=== PATIENT | female | born 1980 | race African-American/Black ===

== ENCOUNTER → 2020-02-29 | Outpatient (CLI) | payer OTHER | LOC: ULTRA 14:58 | PROVIDERS: ATTEND Obstetrics & Gynecology | DX: R10.2 Pelvic and perineal pain (principal) ==

== ENCOUNTER 2020-12-08 07:57 | Inpatient (IN) | payer OTHER ==
[~2020-12-08] VITALS: Ht 160 cm; Wt 68.0 kg
[2020-12-08] VITALS (7 sets, daily range): BP systolic 92–117; BP diastolic 62–78
[2020-12-08] MEDS ORDERED: VALSARTAN-HCTZ1 EAC2 PO (08:05)
[2020-12-08 08:39] LABS: ABSOLUTE NEUTROPHILS 12.3 thou/uL (1.4-8.2); BASOPHILS 0.5 % (0.0-2.0); EOSINOPHILS 0.2 % (0.0-3.0); HEMATOCRIT 39.1 % (37.0-47.0); HEMOGLOBIN 13.2 gm/dL (12.0-15.0); LYMPHOCYTES 11.6 % (24.0-44.0); MCH 32.2 pg (26.0-34.0); MCHC 33.8 g/dL (28.0-37.0); MCV 95.4 fL (80.0-100.0); MONOCYTES 6.1 % (1.0-8.0); PLATELET COUNT 231 thou/uL (150-400); POLYS 81.6 % (36.0-66.0); RDW 13.3 % (10.5-14.5)
[2020-12-08 08:46] LABS: ANION GAP 11 mmol/L (7-16); BUN 16 mg/dL (7-18); CALCIUM 9.3 mg/dL (8.5-10.1); CHLORIDE 98 mmol/L (98-107); CO2 27 mmol/L (21-32); CREATININE 1.1 mg/dL (0.6-1.0); GLUCOSE 138 mg/dL (74-106); POTASSIUM 3.9 mmol/L (3.5-5.1); SODIUM 136 mmol/L (136-145)
[2020-12-08 08:52] LABS: ALBUMIN 3.9 g/dL (3.4-5.0); DIRECT BILIRUBIN < 0.1 mg/dL (<0.1-0.2); LIPASE 80 U/L (73-393); SGOT 472 U/L (15-37); SGPT 80 U/L (30-65); TOTAL BILIRUBIN 0.5 mg/dL (0.2-1.0); TOTAL PROTEIN 8.2 g/dL (6.4-8.2)
--- NOTE | 2020-12-08 15:00 | 2DMMODE ---
[facility] [place] [address] 2 D/M-MODE ECHOCARDIOGRAM Name: DOUG GRAFF [facility] Room #: 170-9 ADM IN M.R.#: [id number] Admission: 12/08/20 Attend Phys: Og Khan MD Discharge: Date of : 80 Report #: [id number] THIS REPORT FOR: cc: Doug Ortiz DNP, Mary E. DNP Park, Jin S. MD ~ APPROVED REPORT Study performed: 12/08/2020 12:43:22 EXAM: Comprehensive 2D, Doppler, and color-flow Echocardiogram Patient Location: ER Room #: 9 Status: stat BSA: 1.71 HR: 76 bpm BP: 134/98 mmHg Rhythm: NSR Other Information Study Quality: Good Indications Non STEMI 2D Dimensions RVDd: 31.86 mm IVSd: 14.44 (7-11mm) LVOT Diam: 19.61 (18-24mm) LVDd: 35.20 mm PWd: 12.81 (7-11mm) Ascending Ao: 29.46 (22-36mm) LVDs: 23.98 (25-40mm) Left Atrium: 27.79 (27-40mm) Aortic Root: 26.68 mm IVC: 19.00 mm Volumes Left Atrial Volume (Systole) Single Plane 4CH: 28.42 mL Single Plane 2CH: 27.51 mL LA ESV Index: 18.00 mL/m2 Aortic Valve AoV Peak Matt.: 1.30 m/s AO Peak Gr.: 6.80 mmHg LVOT Max P.60 mmHg LVOT Max V: 1.07 m/s CORNELL Vmax: 2.48 cm2 [facility] [address] [address] 2 D/M-MODE ECHOCARDIOGRAM [facility] #: 170-[address] [facility].#: [id number] Admission: 12/08/20 Attend Phys: Og Khan MD Discharge: Date of : 80 Report #: [id number] Mitral Valve E/A Ratio: 1.2 MV Decel. Time: 218.69 ms MV E Max Matt.: 0.76 m/s MV A Matt.: 0.63 m/s MV PHT: 63.42 ms IVRT: 110.73 ms Pulmonary Valve PV Peak Matt.: 0.93 m/s PV Peak Gr.: 3.45 mmHg Pulmonary Vein P Vein S: 0.53 m/s P Vein A: 0.23 m/s P Vein D: 0.29 m/s P Vein A Dur.: 110.7 msec P Vein S/D Ratio: 1.83 Tricuspid Valve TR Peak Matt.: 2.45 m/s TR Peak Gr.: 23.98 mmHg PA Pressure: 29.00 mmHg Left Ventricle The left ventricle is normal size. There is hypokinesis of the inferior segment. Mild concentric left ventricular hypertrophy. Left ventricular systolic function is mild to moderately decreased. LVEF is 40-45%. The left ventricular diastolic function is normal. Right Ventricle The right ventricle is normal size. The right ventricular systolic function is normal. Atria The left atrium size is normal. The right atrium size is normal. Aortic Valve The aortic valve is normal in structure. No aortic regurgitation is present. There is no aortic valvular stenosis. Mitral Valve The mitral valve is normal in structure. Trace mitral regurgitation. No evidence of mitral valve stenosis. Tricuspid Valve The tricuspid valve is normal in structure. There is trace tricuspid [facility] [address] [address] 2 D/M-MODE ECHOCARDIOGRAM Name: DOUG GRAFF [facility] Room #: 170-9 ADM IN M.R.#: [id number] Admission: 12/08/20 Attend Phys: Og Khan MD Discharge: Date of : 80 Report #: [id number] regurgitation. Estimated PAP 29 mmHg. Pulmonic Valve The pulmonary valve is normal in structure. There is no pulmonic valvular regurgitation. Great Vessels The aortic root is normal in size. IVC is normal in size and collapses >50% with inspiration. Pericardium There is no pericardial effusion. <Conclusion> The left ventricle is normal size. Mild concentric left ventricular hypertrophy. Left ventricular systolic function is mild to moderately decreased. The right ventricle is normal size. The left atrium size is normal. The aortic valve is normal in structure. Trace mitral regurgitation. There is trace tricuspid regurgitation. Estimated PAP 29 mmHg. <ELECTRONICALLY SIGNED> By: Cornell Gaspar MD 12/08/20 1500 1500 1500 Cornell Gaspar MD /INF
[2020-12-08 15:35] LABS: CHOLESTEROL 236 mg/dL (<200); HDL CHOLESTEROL 48 mg/dL (>40); LDL CHOLESTEROL 151 mg/dL (<100); TC:HDL 4.9 Ratio (Not establshd); TRIGLYCERIDE 187 mg/dL (<150); VLDL 37 mg/dL (<40)
--- NOTE | 2020-12-08 15:47 | EKG ---
[address] [place] [address] ELECTROCARDIOGRAM REPORT Name: DOUG GRAFF [facility] Room #: 170-9 ADM IN M.R.#: [id number] Admission: 12/08/20 Attend Phys: Og Khan MD Discharge: Date of : 80 Report #: [id number] [facility] ED Test Date: 2020-12-08 Test Time: 09:30:07 Pat Name: DOUG GRAFF Department: Room: 170 Gender: F Core Shaper Top: tiffany : 1980 Requested By: Carroll Alvarez Order Number: [id number] MD: Michael Uribe Measurements Intervals [place] Rate: 70 P: 67 MS: 146 QRS: 47 QRSD: 127 T: -73 QT: 425 QTc: 459 Interpretive Statements Sinus rhythm Probable left atrial enlargement Nonspecific intraventricular conduction delay Nonspecific repol abnormality, diffuse leads IWMI, acute No previous ECG available for comparison Electronically Signed On 12-08-2020 15:47:13 CDT by Michael Uribe [email or web address] <ELECTRONICALLY SIGNED> By: Michael Uribe MD, [facility] 12/08/20 1547 0930 9 Michael Uribe MD, FACC /EPI
--- NOTE | 2020-12-08 15:48 | EKG ---
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: GALILEO : 1980 Requested By: Cornell Gaspar Order Number: [id number] MD: Michael Uribe Measurements Intervals [place] Rate: 68 P: 60 CO: 148 QRS: 40 QRSD: 102 T: -66 QT: 396 QTc: 422 Interpretive Statements Sinus rhythm Nonspecific T abnormalities, diffuse leads Compared to ECG 12/08/2020 10:37:20 T-wave abnormality now present Intraventricular conduction delay no longer present Electronically Signed On 12-08-2020 15:48:30 CDT by Michael Uribe [email or web address] <ELECTRONICALLY SIGNED> By: Michael Uribe MD, [facility] 12/08/20 1548 15 15 Michael Uribe MD, FACC /EPI
--- NOTE | 2020-12-08 15:48 | EKG ---
[address] [place] [address] ELECTROCARDIOGRAM REPORT Name: [facility]G GRAFF [facility] Room #: 170-9 ADM IN M.R.#: [id number] Admission: 12/08/20 Attend Phys: Og Khan MD Discharge: Date of : 80 Report #: [id number] [facility] ED Test Date: 2020-12-08 Test Time: 10:37:20 Pat Name: DOUG GRAFF Department: Room: 170 Gender: F Autoclave Operator: NOMI : 1980 Requested By: Carroll Alvarez Order Number: [id number] MD: Michael Uribe Measurements Intervals [place] Rate: 63 P: 66 [place]: 143 QRS: 52 QRSD: 140 T: -57 QT: 439 QTc: 450 Interpretive Statements Sinus rhythm Probable left atrial enlargement Nonspecific intraventricular conduction delay Borderline repol abnrm, anterolateral leads Compared to ECG 12/08/2020 09:30:07 ST (T wave) deviation no longer present Electronically Signed On 12-08-2020 15:48:04 CDT by Michael Uribe [email or web address] <ELECTRONICALLY SIGNED> By: Michael Uribe MD, [facility] 12/08/20 1548 1037 1037 Michael Uribe MD, [facility] /EPI
--- NOTE | 2020-12-08 16:49 | CATHLAB ---
[facility] [place] [address] INVASIVE PROCEDURE REPORT Name: [facility] Room #: 170-9 ADM IN M.R.#: [id number] Admission: 12/08/20 Attend Phys: Og Khan MD Discharge: Date of : 80 Report #: [id number] THIS REPORT FOR: cc: Doug Ortiz DNP, Mary E. DNP Park, Jin S. MD ~ APPROVED REPORT Study performed: 12/08/2020 12:24:20 Patient Details Patient Status: ED Room #: The patient is a 40 year-old female Event Personnel Cornell Gaspar Cardiopulmonary Supervisor, Estela Jackson RN RN, Michelle Mcclain Monitor, Kate Murcia RTR, LAW ENFORCEMENT DIRECTOR Scrub Procedures Performed Art Access - R femoral artery* Left Heart Cath w/or w/o Coronaries [id number] [facility] [address] Initial Mod Sed Same Phys/QHP Gr5y 307118 64224 Mod Sed Same Phys/QHP Ea 571278 Hemostasis w/ Mynx VIOLA Place w/wo Plasty Single RCA 010746 Indication Non-STEMI , Unstable angina , The patient presented with 2 days of abdominal discomfort and nausea. ECG revealed ST segment abnormalities in inferior leads. Initial troponin level was positive, diagnosed with postinfarct angina. Risk Factors Cerebrovascular Disease, Hypercholesterolemia, Hypertension, Tobacco History () Previous Procedures/Diagnoses Previous CVA Procedure Narrative The Right Groin^ was infiltrated with 1% Lidocaine subcutaneous anesthesia. A PINNACLE 6FR Sheath #[id number] sheath was inserted into the RFA 6F^. Coronary angiography was performed using coronary diagnostic catheters. The right coronary system was accessed and visualized with a JR4 catheter. The left coronary system was accessed and visualized with a JL4 catheter. The left ventricle was accessed [facility] [place] [address] [place] [address] INVASIVE PROCEDURE REPORT Name: DOUG GRAFF [facility] Room #: 170-9 ADM IN ..#: [id number] Admission: 12/08/20 Attend Phys: Og Khan MD Discharge: Date of : 80 Report #: [id number] and visualized with a ANGLE PIG catheter. Left ventriculogram was performed in 30 degree projection. There was no hematoma. Intraoperative Conscious Sedation Sedation start time: 1335 Case end Time: 1455 Fentanyl 37 mcg Versed 0.5 mg Fluoro Time: 23.50 minutes Dose: DAP 74946.10 cGycm2 3900 mGy Contrast Type and Amount: Omnipaque 265 ml Coronary Angiography The patient's coronary anatomy is right dominant. Diagnostic Cath Left Main The left main artery is a large-caliber vessel, patent with no flow-limiting lesions. LAD The LAD is a moderate-sized caliber vessel, traverses the anterior wall and wraps around the apex. There is mild disease in the proximal segment, 30%. Diagonal 1 This is a small to moderate-sized caliber vessel, patent with no flow-limiting lesions. Circumflex There is mild disease in the proximal left circumflex artery, 30%. OM1 This is a small to moderate-sized caliber vessel, patent with no flow-limiting lesions. OM2 There is a moderate-sized caliber vessel, patent with no flow-limiting lesions. Right Coronary There is a total occlusion in the proximal/mid segment with a filling defect. R PDA There are partial collaterals to the distal PDA from the left coronary artery. Left Ventriculography The left ventricle is normal in size with Diminished contractility. The left ventricular ejection fraction is estimated to be 40-45%. Left ventricular wall motion abnormalities are present. There is inferior wall hypokinesis. Hemodynamics The aortic pressure is mmHg with a mean of 57 mmHg. The left ventricular pressure is 104/9 mmHg with a mean of mmHg. The left ventricular end diastolic pressure is 27 mmHg. [facility] [address] [place] [address] INVASIVE PROCEDURE REPORT Name: DOUG GRAFF [facility] Room #: 1709 [facility] IN [facility].#: [id number] Admission: 12/08/20 Attend Phys: Og Khan MD Discharge: Date of : 80 Report #: [id number] PCI Technique Lesion Percutaneous coronary intervention was performed on the Proximal/mid right coronary artery. The lesion stenosis prior to intervention was 100% with KIM 0 flow. A VISTA 6FR JR 4 #[id number] Guide Catheter was used to engage the ostium. A Luge Wire .014 x 182CM #[id number] Interventional Guidewire was used to cross the lesion. BALLOON DILATION A Balloon catheter Euphora RX 2.25 x 15 #[id number] was inserted and inflated up to 8.00atm for 12seconds. Additional Inflation: 8.00atm for 14seconds. Additional Inflation: 8.00atm for 14seconds. QUICK CAT THROMBECTOMY DEVICE USED X 6 TIMES DOWN THE RCA. AFTER THROMBECTOMY RECEPTIONIST/TELEPHONE OPERATOR WAS PERFORMED WITH THE EUPHORA BALLOON 2.71L36HN FROM THE PRCA TO DRCA: DRCA 4 MICHAELLE FOR 16 SEC, 6 MICHAELLE FOR 24 SEC. MRCA 14 MICHAELLE FOR 15 SEC AND 14 MICHAELLE FOR 17 SEC. STENT DEPLOYMENT A drug-eluting stent RESOLUTE AMAIRS RX 3.0 X 15 #[id number] was inserted and inflated up to 12.00atm for 17seconds. COMMENTS I placed a luge wire through the obstruction and placed in the distal branches. The lesion was initially ballooned with no improvement in flow. There was evidence for thrombus within the mid and distal segments of the RCA proper. As above, thrombectomy was performed multiple times. This removed a significant amount of obstruction with an improvement in coronary blood flow. The distal RCA and the branches were ballooned with a 2.25 mm semicompliant balloon. There was a significant lesion in the mid RCA and this was stented with a drug-eluting stent. Conclusion 1. PCI involving thrombectomy and placement of a drug-eluting stent into the RCA with cheondoism of KIM-3 blood flow. 2. There is mild disease in the LAD and left circumflex artery. 3. There is mild to moderate segmental LV dysfunction. 4. Recommend dual antiplatelet therapy and aggressive risk factor management. <ELECTRONICALLY SIGNED> By: Cornell Gaspar MD 12/08/201647 47 47 Cornell Gaspar MD /INF
--- NOTE | 2020-12-08 17:07 | NUR ---
PT ORIENTED TO ROOM AND UNIT, BED LOW AND LOCKED, SIDE RAILS UPX 3, CALL LIGHT IN REACH, TELE APPLIED. RIGHT GROIN CDI WITH NO HEAMTOMA. WILL CONTINUE TO ASSESS.
--- NOTE | 2020-12-08 18:29 | NUR ---
PT OFF BED REST AND UP TO BATRHROM. RIGHT GROIN CDI WOTH NO HEMATOMA.
[2020-12-09 00:45] VITALS: BP 124/104
--- NOTE | 2020-12-09 03:50 | NUR ---
RECEIVED CARE OF THIS PATIENT AT 1900. PATIENT ALERT AND ORIENTED X4. UP AD CHRIS. IV PATENT IN R HAND. HAS DRESSING IN R GROIN, INTACT WITH S/S OF HENATOMA OR OTHER PROBLEMS. C/O PAIN, MED GIVEN. DENIES N/V. SLEPT OFF AND ON DURING NIGHT.
[2020-12-09 04:45] VITALS: BP 98/64
[2020-12-09 06:20] LABS: MCHC 33.1 g/dL (28.0-37.0); MCV 96.7 fL (80.0-100.0); RBC 3.42 mil/uL (4.20-5.00); RDW 13.5 % (10.5-14.5); WBC 9.6 thou/uL (4.0-11.0)
[2020-12-09 06:24] LABS: HEMOGLOBIN 10.9 gm/dL (12.0-15.0)
[2020-12-09 06:38] LABS: ALBUMIN 2.6 g/dL (3.4-5.0); POTASSIUM 3.5 mmol/L (3.5-5.1); TOTAL BILIRUBIN 0.4 mg/dL (0.2-1.0); TOTAL PROTEIN 5.9 g/dL (6.4-8.2)
--- NOTE | 2020-12-09 07:38 | EKG ---
[place] [address] 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 : 1980 Requested By: Cornell Gaspar Order Number: [id number] MD: Michael Uribe Measurements Intervals [place] Rate: 68 P: 0 [place]: QRS: 34 QRSD: 94 T: -71 QT: 454 QTc: 483 Interpretive Statements Sinus rhythm Second deg AVB, Mobitz I (Keerthikeaiden) IWMI, suspect recent Repol abnrm, global ischemia, diffuse leads Compared to ECG 12/08/2020 15:16:22 Early repolarization now present Possible ischemia now present T-wave abnormality no longer present Electronically Signed On 12-09-2020 7:37:56 CDT by Michael Uribe [email or web address] <ELECTRONICALLY SIGNED> By: Michael Uribe MD, FACC 12/09/20 0737 7 7 Michael Uribe MD, [facility] /EPI
[2020-12-09 09:19] VITALS: BP 86/52
[2020-12-09 13:09] VITALS: BP 93/58
[2020-12-09 20:07] VITALS: BP 111/74
--- NOTE | 2020-12-09 20:09 | NUR ---
ASSESSMENT CHARTED - MEDS PER ANGELIKA - DELMER DIET AND FLUIDS. PT WITH NO CO'S OF NAUSEA. GIVEN PAIN MS 2MGS X 3 DOSES FOR ABDO PAIN WITH MIN/MOD RELIEF. SPOKE WITH PHYS AND REQUESTED DIFFERENT MEDICATION - PADED A FURTHER 2 TIMES TO REQUEST AND PAGES NOT RETURNED. NOT NURSE NOTIFIED OF THIS. PT UP AD CHRIS IN ROOM. SEEN BY GI DOCTOR THIS SHIFT - PROTONIX AND CARAFATE ORDERED AND GIVEN. GROIN SITE REMAIN C/D/I. PT WITH SPASMS CONTINUING AT THE PRESENT TIME.
[2020-12-10 05:37] VITALS: BP 109/62
[2020-12-10 06:12] LABS: HEMATOCRIT 30.5 % (37.0-47.0); HEMOGLOBIN 10.3 gm/dL (12.0-15.0); MCH 32.7 pg (26.0-34.0); MCHC 33.9 g/dL (28.0-37.0); MCV 96.6 fL (80.0-100.0); RBC 3.16 mil/uL (4.20-5.00); RDW 13.6 % (10.5-14.5); WBC 8.2 thou/uL (4.0-11.0)
--- NOTE | 2020-12-10 06:36 | NUR ---
ASSUMED CARE OF PT AT 1900. PT IS 1OX4 40F POST STEMI. PT IS ABLE TO AMBULATE IN ROOM AD CHRIS, RUNS SINUS RYTHM WITH SOME ARRYTHMIA, CLEAR ON ROOM AIR, AND R GROIN SITE CLEAN/DRY/INTACT. PT EXPERIENCED SOME DIAPHRAGM SPASMS OVER THE LAST DAY, CALLED [facility] AND GOT CYCLOBENZAPRINE 5MG AND ORDERED REGLAN LATER. BOTH OF THESE EFFECTIVELY MANAGED HER SPASMS. PT RESTED THROUGHOUT THE NIGHT WITH NO COMPLAINTS, VSS. PAIN CONTROLLED WITH IV MEDS X1. WILL CONT TO MONTITOR.
[2020-12-10 06:38] LABS: ALBUMIN 2.5 g/dL (3.4-5.0); DIRECT BILIRUBIN < 0.1 mg/dL (<0.1-0.2); SGOT 133 U/L (15-37); SGPT 46 U/L (30-65); TOTAL BILIRUBIN 0.4 mg/dL (0.2-1.0)
--- NOTE | 2020-12-10 08:17 | HC ---
[facility] [place] [address] CONSULTATION [facility]: [facility] #: 218-P ADM IN M.R.#: [id number] Admission: 12/08/20 Attend Phys: Og Khan MD Discharge: Date of : 80 Report #: [id number] THIS REPORT FOR: cc: Doug Ortiz DNP, Mary E. DNP Mc[place]hinney, Christian C. MD ~ cc: Cornell Gaspar MD, Og Khan MD DATE OF SERVICE: 12/09/2020 HISTORY OF PRESENT ILLNESS: The patient is a 40-year-old female who began having nausea and vomiting over the weekend as well as abdominal pain. On admission, labs showed a troponin of greater than 25,000. EKG at that time revealed S, R and ST elevations in the inferior leads. She underwent cardiac catheterization by Dr. Cornell Gaspar yesterday in which a thrombectomy was performed and a placement of a drug-eluting stent in the RCA was done. Reason for GI consultation is elevated liver function test, recent nausea and vomiting as well as the patient complaining of hiccups and substernal pain and pressure at this time, possibly due to reflux. The patient has a history of CVA at age 19. In speaking with the patient and her mother, just in the last few days she has been having spasms, hiccup-like picture, which is new. Each time, the patient tries to speak, it appears her diaphragm is spasming and she is having difficulty with speech because of this. She does report some heartburn-type symptoms. No previous history of endoscopy. She was not taking any antacids at home. She denies any dysphagia. No previous history of liver disease. She denies any significant alcohol use. No shortness of breath. No fevers or chills at this time. PAST MEDICAL HISTORY: Previous history of CVA at age 19, hypertension, OR status post cardiac catheterization as described above. SOCIAL HISTORY: She does smoke cigars. She reports occasional alcohol use. PHYSICAL EXAMINATION: VITAL SIGNS: Temperature is 37.0, pulse 55, blood pressure is 93/58, respiratory rate is 20. GENERAL: She is alert and oriented x 3. HEENT: Sclerae nonicteric. Oropharynx clear. NECK: Supple, without lymphadenopathy. CARDIAC: Regular rate. CHEST: Clear to auscultation bilaterally. ABDOMEN: Soft. She is mildly tender to palpation in the midepigastrium. Nondistended, positive bowel sounds. EXTREMITIES: No cyanosis, clubbing or edema. NEUROLOGIC: The patient is having spasm-type procedure of her diaphragm when [address] [address] CONSULTATION Name: DOUG GRAFF [facility] Room #: 218-P ADM IN M.R.#: [id number] Admission: 12/08/20 Attend Phys: Og Khan MD Discharge: Date of : 80 Report #: [id number] she is speaking, which is worse, although she is having hiccup-type spasms even when she is not speaking. Again, she states this is a new problem. IMAGING: CT scan of the abdomen and pelvis showing mild fluid surrounding the gallbladder. No evidence of gallstones or gallbladder wall thickening. Finding is indeterminate. Diverticulosis noted throughout the colon. No signs of diverticulitis. Small bilateral renal stones. Three enhancing lesions within the liver measuring up to 1.4 cm are indeterminate, possible focal areas of transient hepatic arterial differentiation or small hepatic hemangiomas. Recommend follow up with ultrasound for further evaluation. An ultrasound of the abdomen was then performed showing trace pericholecystic fluid is again noted indeterminate, ill-defined 1.2 cm hypoechoic lesion in the right hepatic lobe, likely corresponds with a larger enhancing lesion on CT earlier today. The smaller lesions seen on CT are not visualized. These lesions therefore remain indeterminate. Recommend MRI of the abdomen, liver to fully evaluate this is not emergent, can be performed electively as an outpatient. LABORATORY DATA: WBC 9.6, hemoglobin 10.9, platelet count is 168. Sodium 140, potassium 3.5, chloride 107, bicarbonate 22, BUN is 8, creatinine is 1.0, glucose 125, calcium is 8.0, total bilirubin 0.5, AST is 272 and this is down from 472, ALT is 57 and down from 80, alkaline phosphatase is 54 and down from 72, total protein 5.9, albumin 2.6, triglycerides 187. Cholesterol 236. Lipase 80. test was negative. COVID was negative. ASSESSMENT AND PLAN: 1. Elevated liver function tests, specifically AST, ALT. They are improving at this time. There is mild pericholecystic fluid. No evidence of gallstones or gallbladder wall thickening. The patient denies any abdominal pain in the right upper quadrant. The patient may have had some ischemic changes due to recent OR. We will continue to monitor liver function tests. She also has indeterminate lesions in the dome of the liver, would proceed with an MRI later as an outpatient for further evaluation. 2. Hiccups and spasms while talking. This is a new finding. Etiology is unclear, although reflux with esophagitis could potentially cause these type of symptoms. The patient is too high risk at this time with recent OR to proceed with an upper endoscopy. Therefore, we will start treating with b.i.d. PPI therapy and liquid Carafate initially to see if this is helpful. We will continue to follow. Thank you for allowing me to participate in her care. <ELECTRONICALLY SIGNED> By: Bill Veiyra MD 12/10/20 0817 1446 1632 Bill Vieyra MD /nt
[2020-12-10] MEDS ORDERED: BAYER CHEWABLE81 MG PO (09:15)
[2020-12-10] MEDS ORDERED: BRILINTA90 MG PO (09:15)
[2020-12-10] MEDS ORDERED: LIPITOR40 MG PO (09:15)
[2020-12-10 09:31] VITALS: BP 87/55
[2020-12-10 12:49] VITALS: BP 103/67
[2020-12-10] MEDS ORDERED: CARAFATE 11 GM/10 M1 PO (12:50)
[2020-12-10] MEDS ORDERED: ZOFRAN ODT4 MG SUBLING (12:50)
[2020-12-10] MEDS ORDERED: PROTONIX 20 MG20 M1 PO (12:50)
[2020-12-10] MEDS ORDERED: REGLAN 10 MG TA10 MG PO (12:50)
[2020-12-10 15:38] VITALS: BP 103/67
== END 2020-12-10 16:42 | disposition home or self-care (01) | DRG 247 ==
LOC: ER 07:57 → EROBS 13:11 → 2N 13:11
PROVIDERS: Internal Medicine Cardiovascular Disease; Nurse Practitioner; Specialist; Student in an Organized Health Care Education/Training Program; ADMIT Internal Medicine; ATTEND Internal Medicine
PROC: 027034Z Dilation of Coronary Artery, One Artery with Drug-eluting Intraluminal Device, Percutaneous Approach (ICD-10-PCS; principal; 2020-12-08)
PROC: 4A023N7 Measurement of Cardiac Sampling and Pressure, Left Heart, Percutaneous Approach (ICD-10-PCS; principal; 2020-12-08)
PROC: B2151ZZ Fluoroscopy of Left Heart using Low Osmolar Contrast (ICD-10-PCS; principal; 2020-12-08)
PROC: B2111ZZ Fluoroscopy of Multiple Coronary Arteries using Low Osmolar Contrast (ICD-10-PCS; principal; 2020-12-08)
DX: I21.3 ST elevation (STEMI) myocardial infarction of unspecified site (principal); I10 Essential (primary) hypertension; E78.5 Hyperlipidemia, unspecified; I73.9 Peripheral vascular disease, unspecified; R06.6 Hiccough; D64.9 Anemia, unspecified; I25.5 Ischemic cardiomyopathy; K21.9 Gastro-esophageal reflux disease without esophagitis; Z79.82 Long term (current) use of aspirin; Z79.899 Other long term (current) drug therapy; Z88.8 Allergy status to other drugs, medicaments and biological substances; Z86.73 Personal history of transient ischemic attack (TIA), and cerebral infarction without residual deficits
CPT/HCPCS: 10081

== ENCOUNTER → 2020-12-25 | Outpatient (CLI) | payer OTHER ==
[~2020-12-25] MED LIST: BAYER CHEWABLE81 MG PO; BRILINTA90 MG PO; CARAFATE 11 GM/10 M1 PO; LIPITOR40 MG PO; PROTONIX 20 MG20 M1 PO; REGLAN 10 MG TA10 MG PO; VALSARTAN-HCTZ1 EAC2 PO; ZOFRAN ODT4 MG SUBLING
== END ==
LOC: MRI 14:27
PROVIDERS: ATTEND Nurse Practitioner
DX: I67.1 Cerebral aneurysm, nonruptured (principal)

== ENCOUNTER → 2021-01-14 | Outpatient (CLI) | payer OTHER | LOC: CAT 11:01 | PROVIDERS: ATTEND Nurse Practitioner | DX: I67.1 Cerebral aneurysm, nonruptured (principal); R90.89 Other abnormal findings on diagnostic imaging of central nervous system ==

== ENCOUNTER 2021-01-24 22:40 | Emergency (ER) | payer OTHER ==
[~2021-01-24] VITALS: Ht 160 cm; Wt 76.2 kg
[2021-01-25 00:02] LABS: CALCIUM 9.7 mg/dL (8.5-10.1); CREATININE 1.1 mg/dL (0.6-1.0)
[2021-01-25 00:06] LABS: POTASSIUM 3.8 mmol/L (3.5-5.1)
[2021-01-25] MEDS ORDERED: TOPROL XL25 MG PO (00:20)
[2021-01-25 00:24] VITALS: BP 114/81
[2021-01-25 01:48] LABS: ABSOLUTE NEUTROPHILS 7.9 thou/uL (1.4-8.2); BASOPHILS 1.1 % (0.0-2.0); HEMATOCRIT 42.8 % (37.0-47.0); MCH 31.6 pg (26.0-34.0); MCHC 32.8 g/dL (28.0-37.0); MCV 96.2 fL (80.0-100.0); MONOCYTES 6.5 % (1.0-8.0); POLYS 62.4 % (36.0-66.0); RBC 4.44 mil/uL (4.20-5.00); RDW 13.5 % (10.5-14.5)
[2021-01-25 01:49] LABS: PLATELET COUNT 269 thou/uL (150-400)
--- NOTE | 2021-01-25 12:29 | EKG ---
[place] [address] [place] [address] ELECTROCARDIOGRAM REPORT [facility] [id number] Admission: 01/24/21 Attend Phys: Discharge: 01/25/21 Date of : 80 Report #: [id number] [facility] ED Test Date: 2021-01-24 Test Time: 22:55:41 Pat Name: DOUG GRAFF Department: Room: Gender: F Engagement Specialist: : 1980 Requested By: Bijan Bee Order Number: [id number] MD: Cornell Gaspar Measurements Intervals [place] Rate: 180 P: 0 NE: QRS: 37 QRSD: 73 T: -77 QT: 305 QTc: 529 Interpretive Statements Atrial fibrillation with rapid rates Repolarization abnormality, prob rate related Compared to ECG 12/09/2020 07:18:52 Aberrant conduction of supraventricular beat(s) now present Sinus rhythm no longer present Possible ischemia no longer present Electronically Signed On 01-25-2021 12:29:23 HEAVY MACHINERY ASSEMBLER by Cornell Gaspar [email or web address] <ELECTRONICALLY SIGNED> By: Cornell Gaspar MD 01/25/21 1229 D: [id number] Cornell Gaspar MD /MAITE
== END 2021-01-25 02:05 | disposition home or self-care (01) ==
LOC: ER 22:40
PROVIDERS: Emergency Medicine
DX: I47.1 Supraventricular tachycardia (principal); I10 Essential (primary) hypertension; Z79.82 Long term (current) use of aspirin; Z79.899 Other long term (current) drug therapy; Z88.8 Allergy status to other drugs, medicaments and biological substances

== ENCOUNTER → 2021-02-11 | Outpatient (CLI) | payer OTHER ==
[~2021-02-11] MED LIST changes: +TOPROL XL25 MG PO
== END ==
LOC: SJCVCIMAG 08:52
PROVIDERS: ATTEND Internal Medicine Cardiovascular Disease
DX: I07.1 Rheumatic tricuspid insufficiency (principal); I10 Essential (primary) hypertension; E78.5 Hyperlipidemia, unspecified; I25.10 Atherosclerotic heart disease of native coronary artery without angina pectoris; F17.200 Nicotine dependence, unspecified, uncomplicated; Z95.2 Presence of prosthetic heart valve

== ENCOUNTER → 2021-03-20 | Outpatient (CLI) | payer OTHER | LOC: SJCVCIMAG 02-27 07:24 | PROVIDERS: ATTEND Internal Medicine Cardiovascular Disease | DX: I65.23 Occlusion and stenosis of bilateral carotid arteries (principal); I25.10 Atherosclerotic heart disease of native coronary artery without angina pectoris; E78.5 Hyperlipidemia, unspecified; I10 Essential (primary) hypertension; I21.9 Acute myocardial infarction, unspecified; R06.00 Dyspnea, unspecified; R53.83 Other fatigue; Z87.891 Personal history of nicotine dependence ==